=== PATIENT | female | born 2000 | race Caucasian/White ===

== ENCOUNTER 2019-01-16 14:57 | Outpatient (REF) | payer MEDICAID, SELFPAY ==
[2019-01-20 13:50] LABS: Chlamydia Result Negative; GC Result Negative; Specimen Description URINE
== END 2019-01-16 15:17 ==
LOC: LBN 14:57
PROVIDERS: PCP Pediatrics; Visit Provider Nurse Practitioner Women's Health
DX: Z11.3 Encounter for screening for infections with a predominantly sexual mode of transmission (principal)
CPT/HCPCS: 87491; 87591

== ENCOUNTER 2019-07-04 11:38 | Emergency (ER) | payer MEDICAID, SELFPAY ==
[2019-07-04 11:45] VITALS: BP 137/78; PULSE 100; RESP 18; TEMP 36.8; O2SAT 98
--- NOTE | 2019-07-04 11:55 | W.ED.GENAD ---
Discharge Plan Disposition Patient Disposition: HOME Condition: Stable Discharge Details Chief Complaint: RespSymp Clinical Impression: Acute left otitis media Primary Care Provider: Karis Bose ED Provider: Ventura Jung Home Meds and New Rx's Prescriptions: New amoxicillin-pot clavulanate 875-125 mg tablet 1 tab PO BID 10 Days Qty: 20 RF: 0 Continued Nexplanon 68 mg implant 1 implant SBD ONCE RF: 0 Discharge Instructions Instructions: Otitis Media (ED) Additional Instructions: Take antibiotics as prescribed. While you are on the antibiotics I recommend you take either live culture yogurt or eyxu-jwr-ffxaxfi probiotic once a day in the middle of the day. Return for worsening discomfort or any other acute concerns. Small, frequent sips of fluids to maintain hydration. Tylenol and/or ibuprofen as needed for pain or fever. Medical Decision Making 18-year-old female presents with 3-day 3 of cough, congestion, now ear pain. She is afebrile and taking liquids and solids by mouth without difficulty. Her exam is notable for acute left otitis media. We will treat her with a course of Augmentin. Discussed with her home management as well as follow-up/return precautions. HPI General Mode of arrival: ambulatory. Date/Time Provider Initiated Documentation: 07/04/19 11:38. Limitations to Documentation: no limitations. Information obtained by: patient. History of Present Illness 18 year old F presents to the emergency department with the chief complaint of Cough, congestion, left ear pain for 2 days time., described as moderate, Quality is described as dull, and is localized to the head and left. Patient reports no radiation. Patient started experiencing this day(s) and it has been constant. No relieving factors improve symptom(s), No exacerbating factors reported . Patient notes denies fever/chills. Patient did receive the following treatments prior to arrival, none Related Data Home Medications Medication Instructions Recorded Confirmed etonogestrel 68 mg subdermal 1 implant SBD ONCE 01/16/19 07/04/19 implant amoxicillin-pot clavulanate 1 tab PO BID 10 Days #20 tab 07/04/19 Previous Rx's Medication Instructions Recorded amoxicillin-pot clavulanate 1 tab PO BID 10 Days #20 tab 07/04/19 Allergies Allergy/AdvReac Type Severity Reaction Status Date / Time Sulfa (Sulfonamide Allergy Mild RASH Unverified 07/04/19 11:49 Antibiotics) General Stated Complaint: RespSymp BERT: 4 Review of Systems Narrative: 6 systems reviewed and otherwise negative [facility] Medical History Anxiety Constipation Contraception 15yo OCPs. 12/2015 Nexplanon. Replaced nexplanon 12/2018 Urticaria stress induced Surgical History oral surgery age 7yr Family History Mother Substance abuse Father No problems noted. Grandfather No problems noted. Grandmother Arthritis MGM Social History Smoking/Tobacco Use Status: Never Alcohol Intake: never Drug use: Never Substance use type: does not use Do you feel safe at home: Yes Do you feel safe in your relationship?: Yes Female Reproductive History Menstrual Age of Menarche: 12 control method: implanted (nexplanon inserted by Paco HOLMAN UBD=[id number] EXP=04/22/2021) History History 0 Para Hx # Term Pregnancies Multiple births Hx # Pregnancies Ectopic pregnancies AB induced Hx Number of Living Children AB spontaneous Exam Narrative Exam Narrative: GEN: awake, alert, oriented 3. Pleasant, well groomed, interactive. HEAD: Normocephalic, atraumatic ENT: Mucous membranes moist, oropharynx unremarkable, left tympanogram by distended and erythematous, external ear exam unremarkable EYES: PERRL, EOMI NECK: Full ROM, no LAUREN, no menigismus CHEST/RESP: Nontender, clear to auscultation bilateral, no wheeze/rhonchi/rales CARDIOVASCULAR: RRR, no murmur, rub ena. 2+ Rad pulse bilateral ABDOMEN: Soft, nontender, no mass. +Bowel sounds EXT: Full ROM, no edema, no rash Neuro: Grossly normal neurologic exam, conversant, interactive. Psych: Speech fluent, thoughts congruent, affect normal Course Vital Signs Vital signs: Vital Signs Temperature 36.8 C 07/04/19 11:45 Pulse 100 H 07/04/19 11:45 Respiratory Rate 18 07/04/19 11:45 Blood Pressure 137/78 07/04/19 11:45 Pulse Oximetry 98 07/04/19 11:45 Temperature 36.8 C 07/04/19 11:45 Temperature Source Skin 07/04/19 11:45 Pulse 100 H 07/04/19 11:45 Respiratory Rate 18 07/04/19 11:45 Respiratory Effort Non-Labored 07/04/19 11:49 Respiratory Depth Normal 07/04/19 11:49 Blood Pressure 137/78 07/04/19 11:45 Blood Pressure Position Supine 07/04/19 11:45 Pulse Oximetry 98 07/04/19 11:45 Oxygen Delivery Method Room Air 07/04/19 11:45 Oxygen Flow Rate 0 07/04/19 11:45 Pain Level 4 07/04/19 11:45 Comment 07/04/19 11:45
== END 2019-07-04 12:06 | disposition home or self-care (01) ==
PROVIDERS: Emergency Provider Emergency Medicine; PCP Pediatrics
DX: H66.92 Otitis media, unspecified, left ear (principal)
CPT/HCPCS: 87880; 99283; 87081

== ENCOUNTER 2020-11-16 16:22 | Outpatient (REF) | payer MEDICAID, SELFPAY ==
[2020-11-18 14:50] LABS: Chlamydia Result Negative (Negative); GC Result Negative (Negative)
== END 2020-11-16 16:23 | disposition home or self-care (01) ==
LOC: LBN 16:22
PROVIDERS: Visit Provider Nurse Practitioner Women's Health
DX: Z11.3 Encounter for screening for infections with a predominantly sexual mode of transmission (principal)
CPT/HCPCS: 87491; 87591

== ENCOUNTER 2022-01-24 19:43 | Outpatient (REF) | payer MEDICAID, SELFPAY ==
[2022-01-25 15:05] LABS: Chlamydia Result Negative (Negative); GC Result Negative (Negative)
== END 2022-01-24 19:44 | disposition home or self-care (01) ==
LOC: LBN 19:43
PROVIDERS: Visit Provider Nurse Practitioner Women's Health
DX: Z11.3 Encounter for screening for infections with a predominantly sexual mode of transmission (principal)
CPT/HCPCS: 87491; 87591

== ENCOUNTER 2024-05-26 15:30 | Outpatient (REF) | payer MEDICAID, SELFPAY ==
[2024-05-26 16:29] LABS: Abs Immature Grans 0.04 10^3/uL (0.0-0.06); Absolute Basophil Count 0.06 10^3/uL (0.0-0.2); Absolute Eosinophil Count 0.07 10^3/uL (0.0-0.7); Absolute Lymphocyte Count 3.13 10^3/uL (1.2-3.4); Absolute Monocyte Count 0.55 10^3/uL (0.1-0.8); Basophils % 0.5 %; Eosinophils % 0.6 %; HCT 42.7 % (36.0-46.0); HGB 13.7 g/dL (11.2-15.7); Immature Grans % 0.4 %; Lymphocytes % 28.1 %; MCHC 32.1 % (32.0-36.0); MCV 94 fL (80-95); MPV 10.4 fL (8.0-11.0); Monocytes % 4.9 %; Neutrophils % 65.5 %; Platelet Count 287 10^3/uL (130-400); RBC 4.56 10^6/uL (3.93-5.22); RDW 13.3 % (11.7-14.6); RDW-SD 45.7 fL; WBC 11.15 10^3/uL (4.4-10.8)
[2024-05-26 17:21] LABS: ALT 21 U/L (14-59); AST 16 U/L (15-37); Alkaline Phosphatase 90 U/L (46-116); Anion Gap 10.4 mmol/L (3-11); BUN 10 mg/dL (7-18); Bilirubin, Total 0.39 mg/dL (0.2-1.0); CO2 25.6 mmol/L (21.0-32.0); CREATININE 0.7 mg/dL (0.55-1.02); Calcium 9.7 mg/dL (8.5-10.1); Chloride 105 mmol/L (98-107); Estimated GFR 123.78 (mL/min/1.73m2); Glucose 91 mg/dL (74-106); Potassium 3.9 mmol/L (3.5-5.1); Sodium 141 mmol/L (136-145); TSH (W/Ref FT4) 1.42 uIU/mL (0.36-3.74); Total Protein 7.6 g/dL (6.4-8.2)
== END 2024-05-26 15:31 | disposition home or self-care (01) ==
LOC: NCHCN 15:30
PROVIDERS: Visit Provider Student in an Organized Health Care Education/Training Program
DX: R00.2 Palpitations (principal)
CPT/HCPCS: 80053; 84443; 85025

== ENCOUNTER 2024-06-17 21:44 | Outpatient (REF) | payer MEDICAID, SELFPAY ==
[2024-06-17 17:37] LABS: Anion Gap 14.2 mmol/L (3-11); BUN 10 mg/dL (7-18); CO2 21.8 mmol/L (21.0-32.0); CREATININE 0.6 mg/dL (0.55-1.02); Calcium 9.9 mg/dL (8.5-10.1); Chloride 107 mmol/L (98-107); Estimated GFR 128.46 (mL/min/1.73m2); Glucose 134 mg/dL (74-106); Potassium 4.4 mmol/L (3.5-5.1); Sodium 143 mmol/L (136-145)
[2024-06-19 09:37] LABS: HIV-1/2 Ag & Ab Screen Negative (Negative)
[2024-06-19 10:34] LABS: Syphilis Serology (RPR) Negative (Negative)
[2024-06-19 16:49] LABS: Hepatitis C Ab w Rflx HCV PCR Negative (Negative)
== END 2024-06-17 21:45 | disposition home or self-care (01) ==
LOC: NCHCN 21:44
PROVIDERS: PCP Student in an Organized Health Care Education/Training Program; Visit Provider Student in an Organized Health Care Education/Training Program
DX: I10 Essential (primary) hypertension (principal); Z11.59 Encounter for screening for other viral diseases; Z11.4 Encounter for screening for human immunodeficiency virus [HIV]; Z11.3 Encounter for screening for infections with a predominantly sexual mode of transmission
CPT/HCPCS: 80048; 86803; 87389; 86592

== ENCOUNTER 2024-08-05 15:43 | Outpatient (REF) | payer MEDICAID, SELFPAY ==
--- NOTE | 2024-08-05 15:40 | PAPFT_PTH ---
PATIENT: Rosie Ragsdale LOC: [facility] U#:[id number] AGE/SX: 23/F ROOM: RE08/05/[address]: Iraida uJng NP : 2000 BED: DIS: 08/05/2024 SPEC #: [id number] RECD: 08/05/24 17:37 STATUS: XOCHITL REQ #: [id number] HONG: 08/05/24 15:[address]: Iraida Jung NP DEPT: [facility] Cytology RECD BY: Cindy Mcneill ENTERED: 08/05/24 17:38 SP TYPE: PAPFT OTHR DR: Marbin Linares Tissues: 1 - CX/ENDOCX FOR PAP SMEARS Procedures: PAP THIN PREP/[facility] Screening Comments: [id number]
== END 2024-08-05 15:44 | disposition home or self-care (01) ==
LOC: LBN 15:43
PROVIDERS: PCP Student in an Organized Health Care Education/Training Program; Visit Provider Nurse Practitioner Women's Health
DX: Z01.419 Encounter for gynecological examination (general) (routine) without abnormal findings (principal); Z97.5 Presence of (intrauterine) contraceptive device; Z12.4 Encounter for screening for malignant neoplasm of cervix
CPT/HCPCS: 88142

== ENCOUNTER 2025-04-16 13:35 | Outpatient (CLI) | payer MEDICAID, SELFPAY ==
--- NOTE | 2025-04-16 13:45 | DI.US_ITS ---
Exam(s) US PELVIS TRANSVAGINAL EXAM: US PELVIS TRANSVAGINAL CLINICAL HISTORY: Left-sided pelvic pain,r10.2 TECHNIQUE: Ultrasound of the pelvis was performed both transabdominal and transvaginal. COMPARISON: No exams were available for comparison FINDINGS: UTERUS: Patient is presently menstruating Measures 7.6 cm length x 3.0 cm AP x 3.8 cm wide. There are no uterine fibroids. Endometrial thickness measures 4 mm. There is no fluid in the endometrial canal. CERVIX: There are no obvious nabothian cysts. RIGHT OVARY: Measures 3.3 x 3 x 1 x 2.0 cm There are sub cm follicular cysts in the right ovary. LEFT OVARY: Measures 2.6 x 1.3 x 2.7 cm There is a single sub cm follicular cyst in the left ovary. CUL-DE-SAC: No free fluid evident. IMPRESSION: 1. Normal appearing uterus and age-appropriate endometrium. 2. No abnormal ovarian findings. There are sub cm follicular cysts noted in both ovaries. 3. There are no extraovarian adnexal masses and there is no free fluid evident in the adnexal regions and cul-de-sac. DATA REPOSITORY:
== END 2025-04-16 13:55 ==
LOC: DI 13:36
PROVIDERS: PCP Student in an Organized Health Care Education/Training Program; Visit Provider Nurse Practitioner Women's Health
DX: R10.2 Pelvic and perineal pain (principal)
CPT/HCPCS: 76830; 76856